=== PATIENT | female | born 1965 | race African-American/Black ===

== ENCOUNTER 2016-08-11 16:09 | Emergency (ER) | payer OTHER ==
[2016-08-11 16:29] VITALS: BP 133/83; PULSE 90; TEMP 98.6; BMI 32.1
--- NOTE | 2016-08-11 16:58 | PDOC ---
History of Present Illness <Hua Horn - Last Filed: 08/11/16 17:37> - General History Source: Patient Exam Limitations: No Limitations - History of Present Illness Initial Comments: 08/11/16 17:47 The patient is a 50 year old female with a significant past medical history of depression, anxiety, hypertension, and colitis, presenting to the Emergency Department with worsening depression. The patient reports that she is on Paxil though she feels it is not effective. She admits that her medication was increased by her psychiatrist about 2 months ago. She reports that she constantly feels depressed, and does not want to get out of bed. She admits to anorexia, but denies thoughts of self harm, or suicide. She has not called her psychiatrist to inform her of her worsening symptoms. The patient denies headache, or visual changes. Patient denies fever, cough, and chills. Patient denies nausea, vomiting, and diarrhea. Current medications: Paxil, Benicar, Budesonide, Omeprazole, Estradiol, Progesterone, and Trazadone PCP: Dr. Dylan Chinchilla Psych at [facility] [place]: Dr. Luna Darnell Therapist at [facility]: Michaelle Zheng <Twila Alvarado - Last Filed: 08/11/16 17:49> - General Chief Complaint: Depression Stated Complaint: INCREASED,WORSENING DEPRERSSION Time Seen by Provider: 08/11/16 16:57 Past History - Past Medical History HTN: Yes Psychiatric Problems: Yes (DEPRESSION) Other medical history: LUPUS,PSORIASIS, ECZEMA,CARPAL TUNNEL SYNDROME - Psycho/Social/Smoking Cessation Hx Suicidal Ideation: No Smoking History: Former smoker Have you smoked in the past 12 months: No Information on smoking cessation initiated: No <Hua Horn - Last Filed: 08/11/16 17:37> <Twila Alvarado - Last Filed: 08/11/16 17:49> - Past Medical History Allergies/Adverse Reactions: Allergies Allergy/AdvReac Type Severity Reaction Status Date / Time No Known Allergies Allergy Verified 08/11/16 16:21 Home Medications: Ambulatory Orders Budesonide [ENTOCORT EC (Nf) -] 9 mg PO DAILY 08/11/16 Estradiol 1 mg PO DAILY 08/11/16 Olmesartan/Hydrochlorothiazide [Benicar Hct 40-12.5 mg Tablet] 1 each PO DAILY 08/11/16 Omeprazole 40 mg PO HS 08/11/16 Paroxetine HCl [Paxil] 30 mg PO DAILY 08/11/16 Progesterone,Micronized [Progesterone] 200 mg PO ASDIR 08/11/16 Trazodone HCl 100 mg PO HS 08/11/16 Review of Systems - Review of Systems Able to Perform ROS?: Yes Comments:: 08/11/16 17:48 GENERAL/CONSTITUTIONAL: No fever or chills. No weakness. HEAD, EYES, EARS, NOSE AND THROAT: No change in vision. No ear pain or discharge. No sore throat. CARDIOVASCULAR: No chest pain or shortness of breath. RESPIRATORY: No cough, wheezing, or hemoptysis. GASTROINTESTINAL: No nausea, vomiting, diarrhea or constipation. GENITOURINARY: No dysuria, frequency, or change in urination. MUSCULOSKELETAL: No joint or muscle swelling or pain. No neck or back pain. SKIN: No rash NEUROLOGIC: + depression, + anorexia. No headache, vertigo, loss of consciousness, or change in strength/sensation. ENDOCRINE: No increased thirst. HEMATOLOGIC/LYMPHATIC: No anemia, easy bleeding, or history of blood clots. ALLERGIC/IMMUNOLOGIC: No hives or skin allergy. <Twila Alvarado - Last Filed: 08/11/16 17:49> *Physical Exam - Vital Signs Last Vital Signs Temp Pulse Resp BP Pulse Ox 98.6 F 90 19 133/83 100 08/11/16 16:21 08/11/16 16:21 08/11/16 16:21 08/11/16 16:21 08/11/16 16:21 <Hua Horn - Last Filed: 08/11/16 17:37> - Vital Signs Last Vital Signs Temp Pulse Resp BP Pulse Ox 98.6 F 90 19 133/83 100 08/11/16 16:21 08/11/16 16:21 08/11/16 16:21 08/11/16 16:21 08/11/16 16:21 - Physical Exam Comments: 08/11/16 17:48 GENERAL: Depressed affect, concerned about lack of energy and inability to get out of bed. Awake, and fully oriented, in no acute distress HEAD: No signs of trauma EYES: PERRLA, EOMI, sclera anicteric, conjunctiva clear ENT: Auricles normal inspection, hearing grossly normal, nares patent, oropharynx clear without exudates. Moist mucosa NECK: Normal ROM, supple, no lymphadenopathy, JVD, or masses LUNGS: Breath sounds equal, clear to auscultation bilaterally. No wheezes, and no crackles HEART: Regular rate and rhythm, normal S1 and S2, no murmurs, rubs or gallops ABDOMEN: Soft, nontender, normoactive bowel sounds. No guarding, no rebound. No masses EXTREMITIES: Normal range of motion, no edema. No clubbing or cyanosis. No cords, erythema, or tenderness NEUROLOGICAL: Cranial nerves II through XII grossly intact. Normal speech, normal gait. Not suicidal, not homicidal, not delusional. SKIN: Warm, Dry, normal turgor, no rashes or lesions noted. <Twila Alvarado - Last Filed: 08/11/16 17:49> *DC/Admit/Observation/Transfer - Discharge Dispostion Admit: No - Attestations Physician Attestion: 08/11/16 16:58 I, Dr. Hua Horn, attest that this document has been prepared under my direction and personally reviewed by me in its entirety. I further attest, that it accurately reflects all work, treatment, procedures and medical decision -making performed by me. <Hua Horn - Last Filed: 08/11/16 17:37> - Attestations Scribe Attestion: 08/11/16 17:48 Documentation prepared by Twila Alvarado, acting as site medical director for Hua Horn DO. <Twila Alvarado - Last Filed: 08/11/16 17:49> Diagnosis at time of Disposition: Depression Qualifiers: Depression Type: unspecified Qualified Code(s): F32.9 - Major depressive disorder, single episode, unspecified - Discharge Dispostion Disposition: HOME Condition at time of disposition: Good - Referrals Referrals: STAFF,NOT ON [Primary Care Provider] - - Patient Instructions Printed Discharge Instructions: DI for Depression -- Adult Additional Instructions: Mrs Dong- I am sorry that things are as they are for you right now. I would try to work with your present psychiatrist to adjust the medications or change them. Alternatively you could work with your Insurance company to find other psychiatrists who are accepting new patients and your current insurance. Otherwise you could look at facilities that offer psychiatric services inpatient , outpatient or both. Return to us if worse or any problems... Best- Dr. Hua Horn
== END 2016-08-11 17:51 | disposition home or self-care (01) ==
LOC: JER 16:09
DX: F32.9 Major depressive disorder, single episode, unspecified (principal)
CPT/HCPCS: 99281-25

== ENCOUNTER 2016-09-13 18:09 | Observation (INO) | payer OTHER ==
--- NOTE | 2016-09-13 20:00 | PDOC ---
History of Present Illness - General History Source: Patient <Fei Medeiros - Last Filed: 09/13/16 21:12> - General History Source: Patient Exam Limitations: No Limitations - History of Present Illness Initial Comments: 09/13/16 20:44 The patient is a 50 year old female, with a significant past medical history of Lupus, Colitis, HTN, Depression, HRT with estradiol who presents from Urgent care to the emergency department with diagnosed DVT in R leg. Patient reports pain and discomfort to R leg, 7/10 in severity. Patient denies any recent trauma to the area, travel, surgeries. Patient denies any chest pain, headache, SOB or abdominal pain. Upon evaluation in the ED, patient vital signs are within normal limits. She denies chest pain, headache or dizziness. She denies fever, chills, abdominal pain, nausea, vomit, diarrhea or constipation. She denies dysuria, frequency, urgency or hematuria. Allergies: NKA Past surgical history: Social history: Denies PCP: None <Tiffanie Sánchez - Last Filed: 09/13/16 21:46> - General Chief Complaint: Pain, Acute Stated Complaint: DVT IN THE RIGHT LEG Time Seen by Provider: 09/13/16 19:59 Past History - Past Medical History HTN: Yes Psychiatric Problems: Yes (DEPRESSION) Other medical history: HRT - Psycho/Social/Smoking Cessation Hx Suicidal Ideation: No Smoking History: Never smoked Have you smoked in the past 12 months: No Information on smoking cessation initiated: No <Mirella Medeirosan - Last Filed: 09/13/16 21:12> <Tiffanie Sánchez - Last Filed: 09/13/16 21:46> - Past Medical History Allergies/Adverse Reactions: Allergies Allergy/AdvReac Type Severity Reaction Status Date / Time No Known Allergies Allergy Verified 09/13/16 18:17 Home Medications: Ambulatory Orders Budesonide [ENTOCORT EC (Nf) -] 9 mg PO DAILY 08/11/16 Estradiol 1 mg PO DAILY 08/11/16 Omeprazole 40 mg PO HS 08/11/16 Paroxetine HCl [Paxil] 40 mg PO DAILY 08/11/16 Progesterone,Micronized [Progesterone] 200 mg PO ASDIR 08/11/16 Nebivolol HCl [Bystolic] 5 mg PO DAILY 09/13/16 Review of Systems - Review of Systems Able to Perform ROS?: Yes Comments:: 09/13/16 20:45 GENERAL/CONSTITUTIONAL: No fever or chills. No weakness. HEAD, EYES, EARS, NOSE AND THROAT: No change in vision. No ear pain or discharge. No sore throat. CARDIOVASCULAR: No chest pain or shortness of breath. RESPIRATORY: No cough, wheezing, or hemoptysis. GASTROINTESTINAL: No nausea, vomiting, diarrhea or constipation. GENITOURINARY: No dysuria, frequency, or change in urination. MUSCULOSKELETAL: No joint or muscle swelling or pain. No neck or back pain. SKIN: No rash EXTREMITIES: +R calf pain. NEUROLOGIC: No headache, vertigo, loss of consciousness, or change in strength/ sensation. ENDOCRINE: No increased thirst. No abnormal weight change. HEMATOLOGIC/LYMPHATIC: No anemia, easy bleeding, or history of blood clots. ALLERGIC/IMMUNOLOGIC: No hives or skin allergy. <Tiffanie Sánchez - Last Filed: 09/13/16 21:46> *Physical Exam - Vital Signs Last Vital Signs Temp Pulse Resp BP Pulse Ox 98.3 F 81 18 173/99 99 09/13/16 18:18 09/13/16 18:18 09/13/16 18:18 09/13/16 18:18 09/13/16 18:18 <Fei Medeiros - Last Filed: 09/13/16 21:12> - Vital Signs Last Vital Signs Temp Pulse Resp BP Pulse Ox 98.3 F 81 18 173/99 99 09/13/16 18:18 09/13/16 18:18 09/13/16 18:18 09/13/16 18:18 09/13/16 18:18 - Physical Exam Comments: 09/13/16 20:45 GENERAL: Awake, alert, and fully oriented, in no acute distress HEAD: No signs of trauma EYES: PERRLA, EOMI, sclera anicteric, conjunctiva clear ENT: Auricles normal inspection, hearing grossly normal, nares patent, oropharynx clear without exudates. Moist mucosa NECK: Normal ROM, supple, no lymphadenopathy, JVD, or masses LUNGS: Breath sounds equal, clear to auscultation bilaterally. No wheezes, and no crackles HEART: Regular rate and rhythm, normal S1 and S2, no murmurs, rubs or gallops ABDOMEN: Soft, nontender, normoactive bowel sounds. No guarding, no rebound. No masses EXTREMITIES: +R leg tenderness to R calf and behind R knee. No palpable cords. No erythema. No edema. No clubbing or cyanosis. NEUROLOGICAL: Cranial nerves II through XII grossly intact. Normal speech, normal gait SKIN: Warm, Dry, normal turgor, no rashes or lesions noted. <Tiffanie Sánchez Filed: 09/13/16 21:46> Heart Score/ECG Review #1 09/13/16 21:[address] Mala Garay. rate 73 bpm NSR Possible L atrial enlargement [place] Interval 166 ms QRS Duration 82 ms QT/QTc 364/401 ms P-R-T axes 33 25 4 <Tiffanie Sánchez Filed: 09/13/16 21:46> ED Treatment Course - LABORATORY CBC & Chemistry Diagram: 09/13/16 19:39 09/13/16 19:39 <Fei Medeiros Filed: 09/13/16 21:12> - LABORATORY CBC & Chemistry Diagram: 09/13/16 19:39 09/13/16 19:39 - ADDITIONAL ORDERS Additional order review: 09/13/16 19:39 RBC 3.97 MCV 91.8 MCHC 34.0 RDW 15.2 MPV 9.1 Neutrophils % 54.7 Lymphocytes % 28.3 Monocytes % 12.2 H Eosinophils % 4.2 Basophils % 0.6 <Tiffanie Sánchez Filed: 09/13/16 21:46> Medical Decision Making - Medical Decision Making 09/13/16 21:12 Dr. Medeiros: The scribe's documentation has been prepared under my direction and personally reviewed by me in its entirery. I confirm that the note above accurately reflects all work, treatment, procedures, and medical decision making performed by me. Patient with right leg DVT. Will anticoagulate and admit. <Fei Medeiros Filed: 09/13/16 21:12> - Medical Decision Making 09/13/16 20:49 Duplex IMPRESSION: 1. DVT right popliteal vein. 2. No evidence of deep venous thrombosis left lower extremity. Reported By: Jean Claude Apple MD 09/13/162037 <Tiffanie Sánchez Filed: 09/13/16 21:46> *DC/Admit/Observation/Transfer - Discharge Dispostion Admit: Yes <Fei Medeiros - Last Filed: 09/13/16 21:12> - Attestations Scribe Attestion: 09/13/16 20:45 Documentation prepared by Tiffanie Sánchez, acting as medical records coder for Fei Medeiros MD/DO. <Tiffanie Sánchez - Last Filed: 09/13/16 21:46> Diagnosis at time of Disposition: Right leg DVT - Referrals
[2016-09-13 20:16] LABS: BASOPHIL 0.6 % (0-2.0); EOSINOPHIL 4.2 % (0-4.5); MCH 31.2 pg (25.7-33.7); MEAN CELL VOLUME 91.8 fl (80-96); MEAN PLT VOLUME 9.1 fl (7.5-11.1); NEUTROPHILS 54.7 % (42.8-82.8); PLATELET COUNT 199 K/MM3 (134-434); RDW 15.2 % (11.6-15.6); WHITE BLOOD COUNT 6.5 K/mm3 (4.0-10.0)
[2016-09-13 20:39] LABS: ALBUMIN 3.3 g/dl (3.4-5.0); ANION GAP 8 (8-16); CALCIUM 8.7 mg/dL (8.5-10.1); CO2 26 mmol/L (21-32); GLUCOSE,RANDOM 86 mg/dL (74-106); SGPT/ALT 23 U/L (12-78)
[2016-09-13 20:41] LABS: ALK PHOS 69 U/L (45-117); BILIRUBIN,TOTAL 0.5 mg/dL (0.2-1.0); CREATININE 0.7 mg/dL (0.55-1.02); TOT PROT 8.1 g/dl (6.4-8.2)
[2016-09-13 20:46] LABS: SGOT/AST 38 U/L (15-37)
[2016-09-13 20:51] LABS: INR 0.98 (0.82-1.09); PROTHROMBIN TIME (PATIENT) 10.8 SEC (9.98-11.88)
[2016-09-13 20:54] LABS: ACTIVATED PTT 26.9 SECONDS (26.9-34.4)
--- NOTE | 2016-09-13 21:08 | PN ---
Teaching Attending Note Name of Resident: Tim Connell ATTENDING PHYSICIAN STATEMENT I saw and evaluated the patient. I reviewed the resident's note and discussed the case with the resident. I agree with the resident's findings and plan as documented. SUBJECTIVE: 50 F w hx. of Lupus, colitis, Depression, HTN, and HRT with Estradiol who presents from urgent care with DVT of R. leg. Notes pain in right leg, which is 7/10. PCP: None OBJECTIVE: Physical: VS: Vital Signs Period Temp Pulse Resp BP Sys/Yeung Pulse Ox Last 24 Hr 98.3 F 81 18 173/99 99 GEN: NAd, resting in bed HEENT: NCAT, PERRL, throat clear without erythema or exudates CARD: RRR S1, S2 RESP: CTAB ABD: BS X4, NTD EXT: R leg TTP edema (non-pitting)> L, Pulses intact CBCD WBC 6.5 K/mm3 (4.0-10.0) 09/13/16 19:39 RBC 3.97 M/mm3 (3.60-5.2) 09/13/16 19:39 Hgb 12.4 GM/dL (10.7-15.3) 09/13/16 19:39 Hct 36.4 % (32.4-45.2) 09/13/16 19:39 MCV 91.8 fl (80-96) 09/13/16 19:39 MCHC 34.0 g/dl (32.0-36.0) 09/13/16 19:39 RDW 15.2 % (11.6-15.6) 09/13/16 19:39 Plt Count 199 K/MM3 (134-434) 09/13/16 19:39 MPV 9.1 fl (7.5-11.1) 09/13/16 19:39 CMP Sodium 137 mmol/L (136-145) 09/13/16 19:39 Potassium 4.7 mmol/L (3.5-5.1) 09/13/16 19:39 Chloride 103 mmol/L (98-107) 09/13/16 19:39 Carbon Dioxide 26 mmol/L (21-32) 09/13/16 19:39 Anion Gap 8 (8-16) 09/13/16 19:39 BUN 9 mg/dL (7-18) 09/13/16 19:39 Creatinine 0.7 mg/dL (0.55-1.02) 09/13/16 19:39 Creat Clearance w eGFR > 60 (>60) 09/13/16 19:39 Random Glucose 86 mg/dL (74-106) 09/13/16 19:39 Calcium 8.7 mg/dL (8.5-10.1) 09/13/16 19:39 Total Bilirubin 0.5 mg/dL (0.2-1.0) 09/13/16 19:39 AST 38 U/L (15-37) H 09/13/16 19:39 ALT 23 U/L (12-78) 09/13/16 19:39 Alkaline Phosphatase 69 U/L (45-117) 09/13/16 19:39 Total Protein 8.1 g/dl (6.4-8.2) 09/13/16 19:39 Albumin 3.3 g/dl (3.4-5.0) L 09/13/16 19:39 Home Medications Medication Instructions Recorded Budesonide [ENTOCORT EC (Nf) -] 9 mg PO DAILY 08/11/16 Estradiol 1 mg PO DAILY 08/11/16 Omeprazole 40 mg PO HS 08/11/16 Paroxetine HCl [Paxil] 40 mg PO DAILY 08/11/16 Progesterone,Micronized 200 mg PO ASDIR 08/11/16 [Progesterone] Nebivolol HCl [Bystolic] 5 mg PO DAILY 09/13/16 ASSESSMENT AND PLAN: 50 F with pmhx of depression, htn, lupus, colitis, with HRT on estradiol who presents with R. Leg pain, found to have a R. Polipiteal DVT 1.) DVT R. Leg - Lovenox 90mg BID - Consider Eliquis tomorrow if pt. is Eligible - D/C Estradiol and FU with [facility]inary Instructor 2.) HTN - C/W Bystolic 3.) Depression - C/W Paxil Place in Obs
[2016-09-13] MEDS ORDERED: ENOXAPARIN NA (PORCINE) 80 MG/0.8 ML DISP.SYRIN SQ SCH (21:15)
[2016-09-13] MEDS ORDERED: ENOXAPARIN NA (PORCINE) 80 MG/0.8 ML DISP.SYRIN SQ ONE ×2 (21:20→21:30)
[2016-09-13] MEDS ORDERED: ACETAMINOPHEN 325 MG TABLET (FP) PO PRN (21:36)
[2016-09-13] MEDS ORDERED: NEBIVOLOL 5 MG TABLET (FP) PO ONE (21:44)
[2016-09-13] MEDS ORDERED: PANTOPRAZOLE 40 MG TABLET (FP) PO SCH (22:00)
[2016-09-13] MEDS ORDERED: PANTOPRAZOLE 40 MG TABLET (FP) ONE (22:15)
--- NOTE | 2016-09-13 22:34 | HP ---
CHIEF COMPLAINT: Right knee pain PCP: Dr. Chinchilla in [place] HISTORY OF PRESENT ILLNESS: 50yo F with PMH of Lupus, HTN and hormone-replacement therapy with Estradiol presents to ER with R knee pain. Pain and swelling began 7-10 days ago in Right calf and radiated up to back of right knee. Pain is worse with stretching and walking, and better with rest. Heating pad and ice packs tried, but did not provide relief. Pain is 7/10 currently, and constant. Pt reports subjective fever and chills yesterday. She went to Urgent Care today r/t increasing pain, Urgent Care referred her to the nearest ER. (+) Ha's sign. Pt began hormone replacement therapy 2 months ago for hot flashes, including estradiol and progesterone. ER course was notable for: (1) US/Duplex revealing Right popliteal vein DVT. (2) Lovenox 80mg SQ given (3) Bystolic 5mg PO given, home med Recent Travel: denied PAST MEDICAL HISTORY: HTN - Bystolic 5mg PO daily Lymphocytic Colitis - Budesonide 9mg PO daily GERD - Omeprazole 40mg PO daily at HS Depression - Paroxetine HCl 40mg PO daily Lupus - mild, pt takes Alieve for joint pain prn PAST SURGICAL HISTORY: Hemorrhoidectomy 2001 Fibrocystic nodule removed from Right breast at age 15 yrs Social History: Smoking: quit 15 yrs ago, used to smoke 1 pack in 4 days x 15 yrs Alcohol: socially Drugs: none Family History: father - PAD, HTN mother - HTN Allergies No Known Allergies Allergy (Verified 09/13/16 18:17) HOME MEDICATIONS: Home Medications Medication Instructions Recorded Budesonide [ENTOCORT EC (Nf) -] 9 mg PO DAILY 08/11/16 Estradiol 1 mg PO DAILY 08/11/16 Omeprazole 40 mg PO HS 08/11/16 Paroxetine HCl [Paxil] 40 mg PO DAILY 08/11/16 Progesterone,Micronized 200 mg PO ASDIR 08/11/16 [Progesterone] Nebivolol HCl [Bystolic] 5 mg PO DAILY 09/13/16 REVIEW OF SYSTEMS CONSTITUTIONAL: Absent: fever, chills, diaphoresis, generalized weakness HEENT: Absent: rhinorrhea, nasal congestion, throat pain, ear pain, eye pain, visual changes CARDIOVASCULAR: Absent: chest pain, palpitations, irregular heart rate, lightheadedness RESPIRATORY: Absent: cough, shortness of breath, dyspnea with exertion, wheezing, stridor GASTROINTESTINAL: Absent: abdominal pain, nausea, vomiting, diarrhea, constipation MUSCULOSKELETAL: Present: R knee pain Absent: myalgia, back pain, neck pain SKIN: Absent: rash, itching, pallor HEMATOLOGIC/IMMUNOLOGIC: Absent: easy bleeding, easy bruising, lymphadenopathy, frequent infections ENDOCRINE: Absent: unexplained weight gain, unexplained weight loss, heat intolerance, cold intolerance NEUROLOGIC: Absent: mental status changes PSYCHIATRIC: Absent: anxiety, depression PHYSICAL EXAMINATION Vital Signs - 24 hr 09/13/16 18:18 Temperature 98.3 F Pulse Rate 81 Respiratory 18 Rate Blood Pressure 173/99 O2 Sat by Pulse 99 Oximetry (%) GENERAL: Awake, alert, and fully oriented, in no acute distress. HEAD: Normal with no signs of trauma. EYES: Extraocular movements intact, sclera anicteric, conjunctiva clear. No lid lag. EARS, NOSE, THROAT: Moist mucous membranes. NECK: No JVD, or masses. LUNGS: Breath sounds equal, clear to auscultation bilaterally. No wheezes, and no crackles. No accessory muscle use. HEART: Regular rate and rhythm, normal S1 and S2 without murmur, rub or gallop. ABDOMEN: Soft, nontender, not distended, normoactive bowel sounds, no guarding, no rebound, no masses. LOWER EXTREMITIES: Right LE slight erythema, slight warmth, slight edema as compared to Left LE. 2+ pulses, warm, well-perfused. NEUROLOGICAL: Normal speech. PSYCHIATRIC: Cooperative. Good eye contact. Appropriate mood and affect. SKIN: Warm, dry, normal turgor, no rashes or lesions noted, normal capillary refill. Laboratory Results - last 24 hr 09/13/16 09/13/16 09/13/16 19:39 19:39 19:39 WBC 6.5 RBC 3.97 Hgb 12.4 Hct 36.4 MCV 91.8 MCH 31.2 MCHC 34.0 RDW 15.2 Plt Count 199 MPV 9.1 Neutrophils % 54.7 Lymphocytes % 28.3 Monocytes % 12.2 H Eosinophils % 4.2 Basophils % 0.6 INR 0.98 PTT (Actin FS) 26.9 Sodium 137 Potassium 4.7 Chloride 103 Carbon Dioxide 26 Anion Gap 8 BUN 9 Creatinine 0.7 Creat Clearance w eGFR > 60 Random Glucose 86 Calcium 8.7 Total Bilirubin 0.5 AST 38 H ALT 23 Alkaline Phosphatase 69 Total Protein 8.1 Albumin 3.3 L IMAGIN09/13/16 US/Duplex reveals Right popliteal vein DVT. 09/13/16 CXR reveals normal chest. ASSESSMENT/PLAN: 50yo F with PMH of Lupus, HTN and hormone-replacement therapy with Estradiol admitted to observation for Right popliteal vein DVT. 1) Right popliteal vein DVT - likely 2/2 estrogen hormone replacement therapy - give Lovenox 90mg SQ BID - Tylenol 650mg PO q4 hr prn for pain - D/C Estradiol - f/u with [facility] [employer] as outpatient - f/u with Hematology as outpatient for coagulation w/u 2) HTN - pt missed BP med today, so home med of Bystolic given in ER - cont. Bystolic 5mg QD 3) Lymphocytic colitis - cont home meds, Entocort EC 4) GERD - cont omeprazole 40mg QD 5) Depression - cont. Paroxetine HCl 40mg PO daily 6) Dispo - day team will check on medication costs- coumadin vs noac Visit type - Emergency Visit Emergency Visit: Yes ED Registration Date: 09/13/16 Care time: The patient presented to the Emergency Department on the above date and was hospitalized for further evaluation of their emergent condition. - New Patient This patient is new to me today: Yes Date on this admission: 09/14/16 - Critical Care Critical Care patient: No
[2016-09-13] MEDS ORDERED: [UNRECOGNIZED DRUG - OTHER] PO SCH (22:45)
[2016-09-13] MEDS ORDERED: PROGESTERONE MICRONIZED 200 MG PO SCH (22:45)
[2016-09-14 00:25] VITALS: BMI 31.9
[2016-09-14] MEDS ORDERED: ENOXAPARIN NA (PORCINE) 40 MG/0.4 ML DISP.SYRIN SQ SCH ×2 (10:00)
[2016-09-14] MEDS ORDERED: ENOXAPARIN NA (PORCINE) 100 MG/1 ML DISP.SYRIN SQ SCH (10:00)
[2016-09-14] MEDS ORDERED: PARoxetine HCL 20 MG TABLET (FP) PO SCH (10:00)
[2016-09-14] MEDS ORDERED: BUDESONIDE 9 MG PO SCH (10:00)
[2016-09-14] MEDS ORDERED: NEBIVOLOL 5 MG TABLET (FP) PO SCH (10:00)
[2016-09-14 13:58] VITALS: BP 125/78; PULSE 88; TEMP 98.5
--- NOTE | 2016-09-14 14:41 | EKG ---
Test Reason : Blood Pressure : / mmHG Vent. Rate : 073 BPM Atrial Rate : 073 BPM P-R Int : 166 ms QRS Dur : 082 ms QT Int : 364 ms P-R-T Axes : 033 025 004 degrees QTc Int : 401 ms NORMAL SINUS RHYTHM POSSIBLE LEFT ATRIAL ENLARGEMENT BORDERLINE ECG NO PREVIOUS ECGS AVAILABLE Confirmed by LEONIDAS SOTOMAYOR, ALEX ([id number]) on 09/14/2016 2:41:24 PM Referred By: Confirmed By:ALEX LAUREN MD
--- NOTE | 2016-09-14 15:21 | PN ---
Teaching Attending Note Name of Resident: Carlos Amaya ATTENDING PHYSICIAN STATEMENT I saw and evaluated the patient. I reviewed the resident's note and discussed the case with the resident. I agree with the resident's findings and plan as documented. SUBJECTIVE: no fever or chills. Has no CP or SOB. HAs pain in R politeal area OBJECTIVE: NAD CV : RRR, 2/6 SM at base ( RUSB, LUSB ) Lungs : CTAB ext : R LE with tigh skin, increased circumference and TTP from knee down . no erythema . has increased warmth of posterior leg ASSESSMENT AND PLAN: 50 y/o lady with h/o HTN, Lupus , lymphocytic colitis , and hormonal therapy who presented with RLE pain and was found to have DVT of RLE 1- R Popliteal vein DVT: probably due to Estrogen therapy . Has lupus , so lupus anticoagulants could not be r/o completely - d/w her her options of AC, she chose lovenox . - insurance was contacted , and medication will be covered - dc hormonal therapy - still needs hypercoagulable w/u as out pt - duration of AC will be determined depending on hypercoagulable w/u results 2- HTN and lymphocytic coliti s: cont meds Dispo : dc home on Lovenox . f/u with heme and PCP
--- NOTE | 2016-09-14 15:51 | DS ---
Physical Exam: SUBJECTIVE: Patient seen and examined at bedside. No new complaints.Continues to have some R leg pain but improved. Denies CP,MOREAU, SOB, palpitations, abd. pain , N/V. OBJECTIVE: Vital Signs Period Temp Pulse Resp BP Sys/Yeung Pulse Ox Last 24 Hr 98.5 F-99 F 72-90 18-20 125-144/71-91 100-100 PHYSICAL EXAM GENERAL: The patient is awake, alert, and fully oriented, in no acute distress. HEAD: Normal with no signs of trauma. EYES: PERRL, extraocular movements intact, sclera anicteric, conjunctiva clear. ENT: Ears normal, nares patent, oropharynx clear without exudates, moist mucous membranes. NECK: Trachea midline, full range of motion, supple. LUNGS: Breath sounds equal, clear to auscultation bilaterally, no wheezes, no crackles, no accessory muscle use. HEART: Regular rate and rhythm, S1, S2 without murmur, rub or gallop. ABDOMEN: Soft, nontender, nondistended, normoactive bowel sounds, no guarding, no rebound, no hepatosplenomegaly, no masses. EXTREMITIES: 2+ pulses, warm, well-perfused, no edema.Slight R leg erythema and edema. NEUROLOGICAL: Cranial nerves II through XII grossly intact. Normal speech, normal gait. PSYCH: Normal mood, normal affect. LABS Laboratory Results - last 24 hr 09/13/16 09/13/16 09/13/16 19:39 19:39 19:39 WBC 6.5 RBC 3.97 Hgb 12.4 Hct 36.4 MCV 91.8 MCH 31.2 MCHC 34.0 RDW 15.2 Plt Count 199 MPV 9.1 Neutrophils % 54.7 Lymphocytes % 28.3 Monocytes % 12.2 H Eosinophils % 4.2 Basophils % 0.6 INR 0.98 PTT (Actin FS) 26.9 Sodium 137 Potassium 4.7 Chloride 103 Carbon Dioxide 26 Anion Gap 8 BUN 9 Creatinine 0.7 Creat Clearance w eGFR > 60 Random Glucose 86 Calcium 8.7 Total Bilirubin 0.5 AST 38 H ALT 23 Alkaline Phosphatase 69 Total Protein 8.1 Albumin 3.3 L IMAGIN09/13/16 US/Duplex reveals Right popliteal vein DVT. 09/13/16 CXR reveals normal chest with no acute pathology. HOSPITAL COURSE: 50yo F with PMH of Lupus, HTN and recently started on HRT for post-menopausal vasomotor symptoms presented to ED from Urgent care with right lower ext. pain and swelling. She was found to have right popliteal DVT seen on doppler US and started on 90mg SQ Lovenox Q12H for treatment. Most likely provoked by starting hormone replacement therapy but given her history of Lupus further work up is warranted to rule out other inherited causes such a Lupus anticoagulant and Antiphospholipid syndrome. She is instructed to follow up with primary care and digital marketing intern in one week. She will need to continue Lovenox for at least three months and perhaps indefinitely depending on outpatient work up. She is in stable condition at time of discharge and instructed to stop hormone replacement immediately. She will resume all other home medications as directed previously. Instructed to return to ED if symptoms worsen or any signs of bleeding. Date of Admission:09/13/16 Date of Discharge: 09/14/16 Minutes to complete discharge: 45 Discharge Summary Reason For Visit: DEEP VEIN THROMBOSIS (DVT)OF ROGHT LOWER EXTREMITY Current Active Problems Right leg DVT (Acute) Depression (Chronic) GERD (gastroesophageal reflux disease) (Chronic) HTN (hypertension) (Chronic) Lupus (Chronic) Lymphocytic colitis (Chronic) Condition: Stable - Instructions Diet, Activity, Other Instructions: You have been diagnosed with a deep vein thrombosis and will need to continue Lovenox 90mg every 12 hrs. for at least 3 mo. You will need to follow up with your primary doctor in one week as well as your digital marketing intern to be worked up for other possible causes of DVT. You will need to discontinue all hormonal replacement therapy as this is the most likely cause of this blood clot. Resume all other home medications as directed. It is recommended that you follow a heart healthy diet low in sodium and saturated fats with plenty of fruits and vegetables (DASH diet). Increase activity as tolerated. If symptoms worsen or fail to improve please return to ED immediately. Also if there are any signs of bleeding from rectum, mouth or any acute trauma please seek medical attention immediately. - duration of treatment with blood thinners need to be determined by the digital marketing intern ( referral given to Dr. Gee ) - you need to start lovenox tonight - Primary care physician - Amor Moody MD ; [address] [address] Referrals: STAFF,NOT ON [Primary Care Provider] - George Gee MD [Staff Physician] - Disposition: HOME - Home Medications Comprehensive Discharge Medication List: Ambulatory Orders Budesonide [Entocort EC -] 9 mg PO DAILY 08/11/16 Omeprazole 40 mg PO HS 08/11/16 Paroxetine HCl [Paxil] 40 mg PO DAILY 08/11/16 Nebivolol HCl [Bystolic] 5 mg PO DAILY 09/13/16 Enoxaparin Sodium 90 mg SQ BID #60 ml 09/14/16 This patient is new to me today: Yes Date on this admission: 09/14/16 Emergency Visit: Yes ED Registration Date: 09/13/16 Care time: The patient presented to the Emergency Department on the above date and was hospitalized for further evaluation of their emergent condition. Critical Care patient: No - Discharge Referral Referred to [facility] Med [facility] No
[2016-09-15] MEDS ORDERED: BUDESONIDE 9 MG PO SCH (10:00)
== END 2016-09-14 17:56 | disposition home or self-care (01) ==
LOC: JER 18:09 → JERBED 21:11 → J6S 23:28
PROVIDERS: ADMIT Internal Medicine; ATTEND Internal Medicine
PROC: 3E013GC Introduction of Other Therapeutic Substance into Subcutaneous Tissue, Percutaneous Approach (ICD-10-PCS; principal; 2016-09-13)
DX: I82.431 Acute embolism and thrombosis of right popliteal vein (principal); I10 Essential (primary) hypertension; F32.9 Major depressive disorder, single episode, unspecified; K52.832 Lymphocytic colitis; K21.9 Gastro-esophageal reflux disease without esophagitis; M32.9 Systemic lupus erythematosus, unspecified
CPT/HCPCS: 36415; 71020-TC; 80053; 85025; 85610; 85730; 93005; 93010; 93971-TC; 99284-25; G0378